=== PATIENT | female | born 1985 | race Caucasian/White ===

== ENCOUNTER 2017-04-06 07:43 | Emergency (ER) | payer OTHER ==
[~2017-04-06] VITALS: Ht 172.7 cm; Wt 65.8 kg
[~2017-04-06 07:43] MED LIST: FLAGYL500 MG PO; HYDROCODONE-AP1 EAC6 PO; IBUPROFEN 800800 M1 PO; IBUPROFEN 800800 MG PO; KEFLEX500 M1 PO; NORCO 5-325 TA1 EACH PO; ULTRAM 50MG TAB50 MG PO
[2017-04-06 08:21] LABS: INFLUENZA B ANTIGEN None Detected (None Detect)
[2017-04-06] MEDS ORDERED: ZOFRAN ODT4 MG SUBLING (08:22)
[2017-04-06] MEDS ORDERED: OSELB75 PO (08:22)
[2017-04-06 08:32] VITALS: BP 126/84
== END 2017-04-06 08:32 | disposition home or self-care (01) ==
LOC: M.ERS 07:43
PROVIDERS: Family Medicine
DX: J09.X2 Influenza due to identified novel influenza A virus with other respiratory manifestations (principal); Z98.51 Tubal ligation status

== ENCOUNTER 2017-08-29 12:06 | Emergency (ER) | payer OTHER ==
[~2017-08-29] VITALS: Ht 172.7 cm; Wt 68.0 kg
[~2017-08-29 12:06] MED LIST changes: +OSELB75 PO; +ZOFRAN ODT4 MG SUBLING
[2017-08-29 13:37] VITALS: BP 103/46
== END 2017-08-29 13:37 | disposition home or self-care (01) ==
LOC: M.ERS 12:06
DX: G43.909 Migraine, unspecified, not intractable, without status migrainosus (principal); R11.2 Nausea with vomiting, unspecified

== ENCOUNTER 2017-11-28 17:23 | Emergency (ER) | payer OTHER ==
[~2017-11-28] VITALS: Ht 165.1 cm; Wt 65.8 kg
[2017-11-28 18:36] VITALS: BP 111/70
== END 2017-11-28 18:37 | disposition home or self-care (01) ==
LOC: M.ERS 17:23
DX: M54.2 Cervicalgia (principal); R11.2 Nausea with vomiting, unspecified; G43.909 Migraine, unspecified, not intractable, without status migrainosus; Z98.890 Other specified postprocedural states; Z98.51 Tubal ligation status

== ENCOUNTER 2018-02-25 17:05 | Emergency (ER) | payer OTHER ==
[~2018-02-25] VITALS: Ht 172.7 cm; Wt 68.0 kg
[2018-02-25 17:17] LABS: URINE BILIRUBIN NEGATIVE (Negative); URINE BLOOD TRACE (Negative); URINE CLARITY HAZY; URINE COLOR DARK YELLOW; URINE GLUCOSE-RANDOM TRACE (Negative); URINE KETONES NEGATIVE (Negative); URINE LEUKOCYTES-REFLEX 1+ (Negative); URINE NITRITE-REFLEX POSITIVE (Negative); URINE PROTEIN NEGATIVE (Negative); URINE SPECIFIC GRAVITY <= 1.005 (1.005-1.030)
[2018-02-25 17:24] LABS: BACTERIA-REFLEX 1-9 Few /HPF (None Seen); CASTS None Seen /LPF (None Seen); CRYSTALS None Seen /LPF (None Seen); SQUAMOUS 0-3 Few /LPF (0-3); URINE RBC 0-2 Rare /HPF (0-2); URINE WBC-REFLEX None Seen /HPF (0-5)
[2018-02-25 17:50] LABS: ABSOLUTE BASOPHILS 0.2 thou/uL (0.0-0.2); ABSOLUTE EOSINOPHILS 0.1 thou/uL (0.0-0.7); ABSOLUTE LYMPHOCYTES 2.4 thou/uL (0.8-5.3); ABSOLUTE MONOCYTES 0.8 thou/uL (0.0-1.2); ABSOLUTE NEUTROPHILS 7.2 thou/uL (1.6-8.1); BASOPHILS 1.4 %; EOSINOPHILS 1.1 %; HEMATOCRIT 37.9 % (37.0-47.0); HEMOGLOBIN 12.9 gm/dL (12.0-15.0); LYMPHOCYTES 22.6 %; MCH 31.1 pg (26.0-34.0); MCHC 33.9 g/dL (28.0-37.0); MCV 91.6 fL (80.0-100.0); MONOCYTES 7.5 %; MPV 9.4 fl. (7.2-11.1); NUCLEATED RBCS 0 /100WBC; PLATELET COUNT* 233 thou/uL (150-400); POLYS 67.4 %; RBC 4.14 mil/uL (4.20-5.00); RDW-CV 12.2 % (10.5-14.5); WBC 10.7 thou/uL (4.0-11.0)
[2018-02-25 17:58] LABS: CALCIUM 8.9 mg/dL (8.5-10.1); CREATININE 0.7 mg/dL (0.6-1.3); POTASSIUM 3.6 mmol/L (3.5-5.1)
[2018-02-25 18:02] LABS: ALBUMIN 3.7 g/dL (3.4-5.0); TOTAL BILIRUBIN 0.2 mg/dL (<0.1-1.0); TOTAL PROTEIN 6.8 g/dL (6.4-8.2)
[2018-02-25] MEDS ORDERED: PYRIDIUM100 M1 PO (19:24)
[2018-02-25] MEDS ORDERED: MACROBID 100 M100 M1 PO (19:24)
[2018-02-25] MEDS ORDERED: CITRATE OF MAG296 ML PO (19:24)
[2018-02-25 19:44] VITALS: BP 131/92
== END 2018-02-25 19:44 | disposition home or self-care (01) ==
LOC: M.ERS 17:05
PROVIDERS: Nurse Practitioner Family
DX: N39.0 Urinary tract infection, site not specified (principal); K59.00 Constipation, unspecified; G43.909 Migraine, unspecified, not intractable, without status migrainosus; Z98.890 Other specified postprocedural states

== ENCOUNTER 2018-02-28 00:33 | Inpatient (IN) | payer OTHER ==
[~2018-02-28] VITALS: Ht 172.7 cm; Wt 71.7 kg
[~2018-02-28 00:33] MED LIST changes: +CITRATE OF MAG296 ML PO; +MACROBID 100 M100 M1 PO; +PYRIDIUM100 M1 PO
[2018-02-28 00:47] VITALS: BP 137/78
[2018-02-28 01:19] LABS: HEMATOCRIT 38.5 % (37.0-47.0); HEMOGLOBIN 13.2 gm/dL (12.0-15.0); MCH 30.7 pg (26.0-34.0); MCHC 34.3 g/dL (28.0-37.0); MCV 89.5 fL (80.0-100.0); MPV 9.1 fl. (7.2-11.1); NUCLEATED RBCS 0 /100WBC; PLATELET COUNT* 212 thou/uL (150-400); RDW-CV 12.5 % (10.5-14.5); WBC 11.7 thou/uL (4.0-11.0)
[2018-02-28 01:26] LABS: CALCIUM 8.8 mg/dL (8.5-10.1); CREATININE 0.7 mg/dL (0.6-1.3); POTASSIUM 4.8 mmol/L (3.5-5.1)
[2018-02-28 01:30] LABS: ALBUMIN 3.5 g/dL (3.4-5.0); TOTAL BILIRUBIN 0.8 mg/dL (<0.1-1.0); TOTAL PROTEIN 7.5 g/dL (6.4-8.2)
[2018-02-28 01:32] LABS: URINE BLOOD 2+ (Negative); URINE CLARITY CLEAR; URINE COLOR ORANGE; URINE GLUCOSE-RANDOM TRACE (Negative); URINE KETONES NEGATIVE (Negative); URINE PROTEIN 2+ (Negative)
[2018-02-28 01:33] LABS: URINE BILIRUBIN 1+ (Negative); URINE LEUKOCYTES-REFLEX 2+ (Negative); URINE NITRITE-REFLEX POSITIVE (Negative)
[2018-02-28 01:35] LABS: ICTOTEST (BILI CONFIRMATORY) Negative (Negative)
[2018-02-28 01:44] LABS: AMP/METHAMP Negative (Negative); BARBITURATES Negative (Negative); BENZODIAZEPINES Negative (Negative); COCAINE Negative (Negative); METHADONE Negative (Negative); OPIATES POSITIVE (Negative); PCP Negative (Negative); THC POSITIVE (Negative)
[2018-02-28 01:52] LABS: ABSOLUTE BASOPHILS 0.1 thou/uL (0.0-0.2); ABSOLUTE EOSINOPHILS 0.1 thou/uL (0.0-0.7); ABSOLUTE LYMPHOCYTES 0.9 thou/uL (0.8-5.3); ABSOLUTE NEUTROPHILS 10.5 thou/uL (1.6-8.1)
[2018-02-28 01:53] LABS: PLATELET ESTIMATE ADEQUATE
[2018-02-28 03:08] LABS: CASTS None Seen /LPF (None Seen); SQUAMOUS 0-3 Few /LPF (0-3)
[2018-02-28 03:09] LABS: BACTERIA-REFLEX >30 Many /HPF (None Seen); CRYSTALS None Seen /LPF (None Seen); URINE RBC 3-10 Few /HPF (0-2); URINE WBC-REFLEX >25 Many /HPF (0-5)
[2018-02-28 03:35] VITALS: BP 120/70
[2018-02-28 03:50] VITALS: BP 123/78
[2018-02-28 08:00] VITALS: BP 112/55
[2018-02-28 15:32] VITALS: BP 123/69
[2018-02-28 20:00] VITALS: BP 124/60
[2018-03-01] VITALS: BP 123/62
[2018-03-01 04:00] VITALS: BP 132/69
[2018-03-01 05:04] LABS: MCH 32.4 pg (26.0-34.0); MCHC 34.2 g/dL (28.0-37.0); MPV 8.7 fl. (7.2-11.1); RBC 3.15 mil/uL (4.20-5.00); RDW-CV 12.3 % (10.5-14.5)
[2018-03-01 05:20] LABS: ALBUMIN 3.2 g/dL (3.4-5.0); CALCIUM 8.4 mg/dL (8.5-10.1); CREATININE 0.6 mg/dL (0.6-1.3); MAGNESIUM 2.1 mg/dL (1.8-2.4); POTASSIUM 3.6 mmol/L (3.5-5.1); TOTAL BILIRUBIN 0.5 mg/dL (<0.1-1.0); TOTAL PROTEIN 6.3 g/dL (6.4-8.2)
[2018-03-01 05:28] LABS: HEMOGLOBIN 10.2 gm/dL (12.0-15.0)
[2018-03-01 07:45] VITALS: BP 136/64
[2018-03-01 16:00] VITALS: BP 130/64
[2018-03-01 19:40] VITALS: BP 117/76
[2018-03-02 09:00] VITALS: BP 99/66
[2018-03-02 16:40] VITALS: BP 124/64
[2018-03-02 19:30] VITALS: BP 110/72
[2018-03-03 08:00] VITALS: BP 120/74
[2018-03-03 11:54] LABS: ABSOLUTE EOSINOPHILS 0.1 thou/uL (0.0-0.7); ABSOLUTE LYMPHOCYTES 0.6 thou/uL (0.8-5.3); ABSOLUTE MONOCYTES 0.6 thou/uL (0.0-1.2); ABSOLUTE NEUTROPHILS 3.6 thou/uL (1.6-8.1); BASOPHILS 0.7 %; EOSINOPHILS 2.6 %; HEMATOCRIT 35.6 % (37.0-47.0); LYMPHOCYTES 12.7 %; MCH 30.8 pg (26.0-34.0); MCHC 34.5 g/dL (28.0-37.0); MONOCYTES 12.8 %; MPV 8.3 fl. (7.2-11.1); NUCLEATED RBCS 0 /100WBC; POLYS 71.2 %; RDW-CV 12.2 % (10.5-14.5); WBC 5.1 thou/uL (4.0-11.0)
[2018-03-03 12:09] LABS: ALBUMIN 2.9 g/dL (3.4-5.0); CALCIUM 8.4 mg/dL (8.5-10.1); CREATININE 0.6 mg/dL (0.6-1.3); POTASSIUM 3.6 mmol/L (3.5-5.1); TOTAL BILIRUBIN 0.2 mg/dL (<0.1-1.0); TOTAL PROTEIN 6.2 g/dL (6.4-8.2)
[2018-03-03 12:24] LABS: HEMOGLOBIN 12.3 gm/dL (12.0-15.0); MCV 89.1 fL (80.0-100.0); PLATELET COUNT* 226 thou/uL (150-400)
[2018-03-03 17:03] VITALS: BP 118/49
[2018-03-03 20:00] VITALS: BP 116/78
[2018-03-04] MEDS ORDERED: PERCOCET PO (10:11)
[2018-03-04] MEDS ORDERED: KEFLEX500 M1 PO (10:11)
[2018-03-04] MEDS ORDERED: NAPROSYN500 M1 PO (10:12)
[2018-03-04] MEDS ORDERED: SENNA S TABLET1 EACH PO (10:13)
[2018-03-04 11:18] VITALS: BP 120/65
[2018-03-04 13:38] VITALS: BP 120/65
[2018-03-04 17:06] VITALS: BP 120/65
[2018-03-04 17:07] VITALS: BP 120/65
== END 2018-03-04 15:20 | disposition home or self-care (01) | DRG 690 ==
LOC: M.ERS 00:33 → M.ORTHSURG 02:46 → M.TBA-ER 02:46 → M.2W 03:25 → M.ORTHSURG 03-02 07:38
PROVIDERS: Emergency Medicine; Internal Medicine; ADMIT Family Medicine
DX: N12 Tubulo-interstitial nephritis, not specified as acute or chronic (principal); K59.00 Constipation, unspecified; G43.909 Migraine, unspecified, not intractable, without status migrainosus; F12.90 Cannabis use, unspecified, uncomplicated; N28.1 Cyst of kidney, acquired; F17.210 Nicotine dependence, cigarettes, uncomplicated; Z98.51 Tubal ligation status; Z98.891 History of uterine scar from previous surgery

== ENCOUNTER 2018-06-08 12:35 | Emergency (ER) | payer OTHER ==
[~2018-06-08] VITALS: Ht 172.7 cm; Wt 65.8 kg
[~2018-06-08 12:35] MED LIST changes: +NAPROSYN500 M1 PO; +PERCOCET PO; +SENNA S TABLET1 EACH PO
[2018-06-08 13:16] LABS: URINE BILIRUBIN NEGATIVE (Negative); URINE BLOOD 3+ (Negative); URINE CLARITY CLEAR; URINE COLOR YELLOW; URINE GLUCOSE-RANDOM NEGATIVE (Negative); URINE KETONES TRACE (Negative); URINE LEUKOCYTES-REFLEX NEGATIVE (Negative); URINE NITRITE-REFLEX NEGATIVE (Negative); URINE PROTEIN NEGATIVE (Negative); URINE SPECIFIC GRAVITY >= 1.030 (1.005-1.030); URINE UROBILINOGEN 0.2 E.U./dl (0.2-1.0)
[2018-06-08 13:22] LABS: SQUAMOUS 0-3 Few /LPF (0-3)
[2018-06-08 13:23] LABS: BACTERIA-REFLEX 1-9 Few /HPF (None Seen); CASTS None Seen /LPF (None Seen); CRYSTALS None Seen /LPF (None Seen); MUCUS 0-3 Light strn/LPF (None Seen); URINE WBC-REFLEX 0-5 Rare /HPF (0-5)
[2018-06-08 13:40] LABS: ABSOLUTE BASOPHILS 0.1 thou/uL (0.0-0.2); ABSOLUTE EOSINOPHILS 0.2 thou/uL (0.0-0.7); ABSOLUTE MONOCYTES 0.5 thou/uL (0.0-1.2); ABSOLUTE NEUTROPHILS 3.6 thou/uL (1.6-8.1); EOSINOPHILS 2.6 %; HEMATOCRIT 41.4 % (37.0-47.0); HEMOGLOBIN 14.2 gm/dL (12.0-15.0); LYMPHOCYTES 31.3 %; MCHC 34.3 g/dL (28.0-37.0); MCV 90.4 fL (80.0-100.0); MONOCYTES 8.1 %; MPV 9.3 fl. (7.2-11.1); NUCLEATED RBCS 0 /100WBC; PLATELET COUNT* 241 thou/uL (150-400); RBC 4.58 mil/uL (4.20-5.00); RDW-CV 12.6 % (10.5-14.5); WBC 6.3 thou/uL (4.0-11.0)
[2018-06-08 13:56] LABS: ALBUMIN 4.1 g/dL (3.4-5.0); CALCIUM 9.3 mg/dL (8.5-10.1); CREATININE 0.6 mg/dL (0.6-1.3); POTASSIUM 3.9 mmol/L (3.5-5.1); TOTAL BILIRUBIN 0.1 mg/dL (<0.1-1.0); TOTAL PROTEIN 7.1 g/dL (6.4-8.2)
[2018-06-08 14:34] VITALS: BP 122/79
== END 2018-06-08 14:35 | disposition home or self-care (01) ==
LOC: M.ERS 12:35
PROVIDERS: Nurse Practitioner Family
DX: N93.9 Abnormal uterine and vaginal bleeding, unspecified (principal); R10.2 Pelvic and perineal pain; F17.210 Nicotine dependence, cigarettes, uncomplicated; G43.909 Migraine, unspecified, not intractable, without status migrainosus; Z98.890 Other specified postprocedural states